=== PATIENT | male | born 1965 | race Caucasian/White ===

== ENCOUNTER 2022-11-16 12:14 | Inpatient (IN) ==
[2022-11-16] MEDS ORDERED: IOPAMIDOL 100 ML BOTTLE IV ONE (12:15)
[2022-11-16] MEDS ORDERED: KETOROLAC 30 MG/ML VIAL IV ONE (12:53)
[2022-11-16] MEDS ORDERED: LORazepam 2 MG/ML VIAL IV ONE (12:53)
--- NOTE | 2022-11-16 14:17 | Emergency Department Note ---
Abdominal Pain HPI General Chief Complaint: Abdominal Pain Stated Complaint: hernia Time Seen by Provider: 11/16/22 12:23 Source: patient Mode of arrival: ambulatory Limitations: no limitations History of Present Illness HPI Narrative: 57-year-old male with history of T2DM, hypertension presents to the ER with acut e onset left groin pain after walking on a treadmill at the gym this morning. He denies associated nausea vomiting or abdominal pain. He has a history of bilateral inguinal hernia with repair on the right and spontaneous reduction of his left inguinal hernia in the remote past. He also has a history of a ventral hernia repair. No other abdominal surgeries. Of note patient had a temperature of 100.6 Fahrenheit upon presentation to triage. The patient denies F/C/S or recent illnesses. Denies dysuria or hematuria. Related Data Home Medications Medication Instructions Recorded Confirmed Cholecalciferol (Vitamin D3) 01/20/18 10/07/22 Niacin 01/20/18 10/07/22 aspirin 81 mg tablet,delayed 81 mg PO QDAY 11/21/20 11/16/22 release omega-3 fatty acids 1,000 mg 1,000 mg PO QDAY 01/21/21 10/07/22 capsule (Fish Oil Concentrate) potassium chloride 8 mEq 8 meq PO QDAY 01/21/21 10/07/22 tablet,extended release (K-Tab) psyllium husk 0.4 gram capsule 0.4 g PO BID 07/03/21 10/07/22 (Daily Fiber) labetalol 300 mg tablet 300 mg PO BID 09/08/22 11/16/22 potassium chloride 8 mEq 8 meq PO TID 11/16/22 11/16/22 tablet,extended release (Klor-Con) Previous Rx's Medication Instructions Recorded metformin 1,000 mg tablet 1,000 mg PO BID #60 tabs 07/30/21 amlodipine 10 mg tablet 10 mg PO QDAY #90 tabs 03/18/22 chlorthalidone 25 mg tablet 25 mg PO QDAY #30 tabs 05/27/22 terbinafine HCl 250 mg tablet 250 mg PO QDAY 6 weeks #42 tabs 08/13/22 Allergies Allergy/AdvReac Type Severity Reaction Status Date / Time telmisartan [From Micardis] AdvReac Severe Other Verified 11/16/22 12:20 lisinopril AdvReac Unspecified Verified 10/07/22 09:27 losartan AdvReac edema, Verified 10/07/22 09:27 congestion, itching Review of Systems ROS ROS Narrative: Narrative: All systems ED: reviewed and negative except as stated. 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) Degenerative disc disease at L5-S1 level (Chronic) Traumatic tear of supraspinatus tendon of left shoulder (Chronic) Lumbar radiculopathy (Chronic) Neck pain (Chronic) Sleep apnea (Chronic) 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) Ringing in ears (Chronic) Wears hearing aid (Chronic) Joint pain (Chronic) Arthritis (Chronic) Muscle weakness (Chronic) Muscle stiffness (Chronic) Chronic pain (Chronic) Anemia (Acute) Diabetes mellitus with nephropathy (Chronic) Radiculopathy, lumbosacral region (Chronic) Carpal tunnel syndrome (Chronic) Lateral epicondylitis, left elbow (Acute) Cellulitis of left leg (Acute) Onychomycosis (Chronic) Medical History Anemia Arthritis Carpal tunnel syndrome Chronic pain Degenerative disc disease at L5-S1 level Diabetes mellitus with nephropathy Foraminal stenosis of lumbar region Gilbert disease Hemangioma L1 - MRI 2020 Hx of [facility]cc use of blood thinners Hypertension Hypokalemia Joint pain Lateral epicondylitis, left elbow Left rotator cuff tear Left shoulder pain Low back pain Lumbar radiculopathy Muscle pain Muscle spasm Muscle stiffness Muscle weakness Neck pain Obesity Onychomycosis Renal cyst, left 7-8 cm, appears unchanged MRI 2020 Ringing in ears Sleep apnea Traumatic tear of supraspinatus tendon of left shoulder Rim rent tear probable. MRI 12/3020 Wears hearing aid Surgical History History of arthroplasty of left shoulder RC repair Dr. Geronimo 02/27/21 History of left knee surgery (~09/23/18) Total knee History of tonsillectomy History of total right knee replacement (~09/2017) Hx of inguinal hernia surgery Right Family History Mother Ovarian cancer Diabetes Type II Hypertension Liver disease Heart attack Father Colon cancer Diabetes Hypertension Osteoarthritis Blood clot in vein Heart attack Grandmother Colon cancer Maternal Brother Hypertension Diabetes Sister Hypertension Social History Smoking Status: Smokeless tobacco Alcohol Intake Frequency: does not drink Substance Use: does not use Exam Narrative Narrative: General: AOx3, NAD, nontoxic appearing. Pleasant and conversant. HEENT: PERRL, EOMI, normocephalic. Moist mucous membranes. Normal facies and normal dentition. Respiratory: Lungs clear to auscultation bilaterally. No respiratory distress. Unlabored breathing. Heart: Regular rate and rhythm, no murmurs/clicks/rubs. Abdomen: Non-tender, Non distended, obese. Left groin with significant bulge to the inguinal canal lateral to the border of the inguinal ligament. This is painful with palpation. I do not feel a obvious defect, but I do attempt reduction which is unsuccessful. No pulsatile mass. Femoral pulses not appreciated due to body habitus. Extremities: Warm and well perfused. No edema. DP 2+ bilaterally. Chronic venous stasis. He does have left lower extremity warm to the touch and some mild circumferential erythema superimposed on the chronic venous stasis. There is no obvious areas of induration. There is minimal discharge from an anterior wan superficial wounds. Neuro: No focal deficits. Cranial nerves II-XII grossly normal. Skin: Warm dry, no rashes or lesions, no cyanosis. Psych: Normal mood and affect Heme/Lymph: No abnormal bruising General Limitations: no limitations Course Course Course Narrative: 57-year-old male presents for acute left inguinal pain and swelling concerning for incarcerated inguinal hernia. Reevaluation(s) Reevaluation #1: Obtain CT of the abdomen pelvis to rule out incarcerated hernia CBC, CHEM panel Establish IV and give IV Ativan for report of severe claustrophobia and need for CT scan Give 30 mg IV Toradol Reevaluation #2: Nursing notes the patient now has a temperature of 101 Fahrenheit. Will obtain CBC and give additional 1000 mg of Tylenol IV. Urinalysis was unremarkable Reevaluation #3: CBC with a white count of 16,800 and left shift. Lactic acid is 2.5--> give IV fluids Potassium is 2.9--> will replace with oral potassium if CT of the abdomen pelvis is negative Patient was reevaluated at the bedside with his and she notes that he has not felt ill and has not been complaining of significant lower extremity pain. She notes that he always has some discomfort in the lower extremities, but she does not feel this is new. She does believe that the left lower extremity is somewhat more red than baseline. She denies that the patient has been complaining of knee pain. Additional Reevaluation(s): CT of the abdomen pelvis with contrast shows a 3.1 cm infiltrated lymph node in the left inguinal region. There is a small left inguinal hernia containing mesenteric fat only. There is a 18 mm hemangioma noted in the left hepatic lobe. Patient has 4-5 nonobstructing stones in the calyces of the kidneys but no obstructing stones. Left lower extremity venous Doppler negative for DVT and no evidence of abscess, but the lymphadenopathy is again noted in the left inguinal region. Will obtain chest x-ray to query for other source of infection. Suspect left lower extremity cellulitis ---> chest x-ray with blunting of the left diaphragm may be indicative of a developing pneumonia. Patient is given 1 g IV ceftriaxone. MRSA nasal swab was negative. Vital Signs Vital signs: Vital Signs Temperature 100.6 F H 11/16/22 12:18 Pulse Rate 89 11/16/22 12:18 Respiratory Rate 26 H 11/16/22 12:18 Blood Pressure 178/73 11/16/22 12:18 Pulse Oximetry (%) 95 11/16/22 12:18 Oxygen Delivery Method Room Air 11/16/22 12:18 Temperature 99.1 F H 11/16/22 17:20 Pulse Rate 91 H 11/16/22 17:01 Respiratory Rate 31 H 11/16/22 17:01 Blood Pressure 159/70 11/16/22 17:01 Pulse Oximetry (%) 94 11/16/22 17:01 Oxygen Delivery Method Room Air 11/16/22 12:18 [facility] MDM Narrative Medical decision making narrative: Left lower extremity cellulitis Patient meets SIRS criteria. I have given 1 g of IV ceftriaxone here. I reache d out to the hospitalist for admission and further work-up for infectious source and he has accepted the patient for admission. Lab Data 11/16/22 13:37 Labs: Lab Results 11/16/22 11/16/22 11/16/22 Range/Units 13:37 13:37 13:38 WBC 16.8 H (4.5-11.0) K/mcL RBC 4.64 (4.63-6.08) M/mcL Hgb 14.1 (13.7-17.5) g/dL Hct 40.0 L (40.1-51.0) % POC Hct (41-55) MCV 86.2 (80.0-100.0) fL MCH 30.4 (26.0-34.0) pg MCHC 35.3 (31.0-36.0) g/dL RDW 12.8 (11.5-14.5) % Plt Count 203 (140-440) K/mcL MPV 11.0 (8.8-12.5) fL Immature Gran % (Auto) 0.5 (0.0-0.5) % Neut % (Auto) 91.3 H (38.0-78.0) % Lymph % (Auto) 3.4 L (15.5-49.0) % Newton % (Auto) 4.1 (1.0-12.0) % Eos % (Auto) 0.6 (0.0-7.0) % Baso % (Auto) 0.1 (0.0-2.0) % Lymph # (Auto) 0.57 L (1.50-4.80) K/mcL Newton # (Auto) 0.69 (0.10-0.90) K/mcL Eos # (Auto) 0.10 (0.00-0.70) K/mcL Baso # (Auto) 0.02 (0.00-0.30) K/mcL Immature Gran # 0.09 H (0.00-0.05) K/mcl Absolute Neutrophils 15.31 H (1.80-8.00) K/mcL POC VBG pH (7.32-7.42) POC VBG pCO2 at Temp (41-51) POC VBG pO2 (25-40) POC VBG HCO3 (24-28) POC VBG Total CO2 (25-29) POC Venous O2 Sat (40-70) POC VBG Base Excess (-2-2) VBG Lactic Acid (0.5-2) POC Sodium (133-145) POC Potassium (3.3-5.1) POC Chloride (96-108) POC Total CO2 (22-30) POC BUN (6-20) POC Creatinine 0.9 POC Glucose (70-105) POC WB Ioniz Calcium (1.16-1.32) C-Reactive Protein (0.03-0.80) mg/dL Procalcitonin (<0.10) ng/mL 11/16/22 11/16/22 11/16/22 Range/Units 14:29 15:54 16:04 WBC (4.5-11.0) K/mcL RBC (4.63-6.08) M/mcL Hgb (13.7-17.5) g/dL Hct (40.1-51.0) % POC Hct 41.0 (41-55) MCV (80.0-100.0) fL MCH (26.0-34.0) pg MCHC (31.0-36.0) g/dL RDW (11.5-14.5) % Plt Count (140-440) K/mcL MPV (8.8-12.5) fL Immature Gran % (Auto) (0.0-0.5) % Neut % (Auto) (38.0-78.0) % Lymph % (Auto) (15.5-49.0) % Newton % (Auto) (1.0-12.0) % Eos % (Auto) (0.0-7.0) % Baso % (Auto) (0.0-2.0) % Lymph # (Auto) (1.50-4.80) K/mcL Newton # (Auto) (0.10-0.90) K/mcL Eos # (Auto) (0.00-0.70) K/mcL Baso # (Auto) (0.00-0.30) K/mcL Immature Gran # (0.00-0.05) K/mcl Absolute Neutrophils (1.80-8.00) K/mcL POC VBG pH 7.48 H (7.32-7.42) POC VBG pCO2 at Temp 36.2 L (41-51) POC VBG pO2 49 H (25-40) POC VBG HCO3 27.0 (24-28) POC VBG Total CO2 28.0 (25-29) POC Venous O2 Sat 87.0 H (40-70) POC VBG Base Excess 3.0 H (-2-2) VBG Lactic Acid 2.5 H (0.5-2) POC Sodium 133 (133-145) POC Potassium 2.9 L* (3.3-5.1) POC Chloride 94 L (96-108) POC Total CO2 31.0 H (22-30) POC BUN 20 (6-20) POC Creatinine 0.9 POC Glucose 284 H (70-105) POC WB Ioniz Calcium 1.11 L (1.16-1.32) C-Reactive Protein (0.03-0.80) mg/dL Procalcitonin 0.43 H (<0.10) ng/mL 11/16/22 Range/Units 16:04 WBC (4.5-11.0) K/mcL RBC (4.63-6.08) M/mcL Hgb (13.7-17.5) g/dL Hct (40.1-51.0) % POC Hct (41-55) MCV (80.0-100.0) fL MCH (26.0-34.0) pg MCHC (31.0-36.0) g/dL RDW (11.5-14.5) % Plt Count (140-440) K/mcL MPV (8.8-12.5) fL Immature Gran % (Auto) (0.0-0.5) % Neut % (Auto) (38.0-78.0) % Lymph % (Auto) (15.5-49.0) % Newton % (Auto) (1.0-12.0) % Eos % (Auto) (0.0-7.0) % Baso % (Auto) (0.0-2.0) % Lymph # (Auto) (1.50-4.80) K/mcL Newton # (Auto) (0.10-0.90) K/mcL Eos # (Auto) (0.00-0.70) K/mcL Baso # (Auto) (0.00-0.30) K/mcL Immature Gran # (0.00-0.05) K/mcl Absolute Neutrophils (1.80-8.00) K/mcL POC VBG pH (7.32-7.42) POC VBG pCO2 at Temp (41-51) POC VBG pO2 (25-40) POC VBG HCO3 (24-28) POC VBG Total CO2 (25-29) POC Venous O2 Sat (40-70) POC VBG Base Excess (-2-2) VBG Lactic Acid (0.5-2) POC Sodium (133-145) POC Potassium (3.3-5.1) POC Chloride (96-108) POC Total CO2 (22-30) POC BUN (6-20) POC Creatinine POC Glucose (70-105) POC WB Ioniz Calcium (1.16-1.32) C-Reactive Protein 2.30 H (0.03-0.80) mg/dL Procalcitonin (<0.10) ng/mL ED POC Tests ED POC Tests: KIMO - Influenza A Negative KIMO - Influenza B Negative KIMO - SARS Antigen Negative Discharge Plan Patient/Caregiver Discharge Instructions Pt seen by STAFF HOME THERAPY RN/PA only: Yes Clinical Impression: Cellulitis of left leg Instructions: Cellulitis (DC) Patient Disposition: Xfer As Inpt ([facility]) Follow up with: Chris Stinson MD [Primary Care Provider] - Prescriptions: No Action omega-3 fatty acids [Fish Oil Concentrate] 1,000 mg capsule 1,000 mg PO QDAY potassium chloride [K-Tab] 8 mEq tablet extended release 8 meq PO QDAY psyllium husk [Daily Fiber] 0.4 gram capsule 0.4 g PO BID Rx Instructions: one level tablespoon metformin 1,000 mg tablet 1,000 mg PO BID Qty: 60 3RF amlodipine 10 mg tablet 10 mg PO QDAY Qty: 90 2RF chlorthalidone 25 mg tablet 25 mg PO QDAY Qty: 30 2RF terbinafine HCl 250 mg tablet 250 mg PO QDAY 42 Days Qty: 42 0RF labetalol 300 mg tablet 300 mg PO BID aspirin 81 mg tablet,delayed release (DR/EC) 81 mg PO QDAY Cholecalciferol (Vitamin D3) Niacin potassium chloride [Klor-Con 8] 8 mEq tablet extended release 8 meq PO TID
[2022-11-16] MEDS ORDERED: ACETAMINOPHEN 325 MG TABLET PO ONE (14:30)
[2022-11-16 14:31] LABS: POC Calcium, Ionized 1.11 (1.16-1.32); POC Creatinine 0.9 (0.6-1.2); POC Potassium 2.9 (3.3-5.1)
[2022-11-16] MEDS ORDERED: ACETAMINOPHEN 1,000 MG/100 ML BAG IV ONE (14:46)
--- NOTE | 2022-11-16 15:26 | Cat Scan Report ---
CLINICAL INFORMATION: Left groin mass. Evaluate for incarcerated left inguinal hernia COMPARISON: None. TECHNIQUE: Following enteric contrast, 80 cc of Isovue-370 were injected intravenously, and 60 seconds later, 0.625 mm helical slices were obtained from the mid heart through the subtrochanteric regions. Following reconstruction, 2.5 mm sagittal, coronal and axial reformatted images were processed and reviewed at bone, lung and soft tissue windows. Five minutes later, 0.625 mm helical slices were obtained from the mid heart through the kidneys and viewed at soft tissue windows.The exam was performed using radiation dose optimization techniques including, but not limited to, automated exposure control, adjustment of the mA and/or kV according to patient size and use of iterative reconstruction technique. FINDINGS: The lung bases subsegmental atelectasis.. No effusions. The visualized heart is mildly enlarged.. Abdominal images show a 19 mm high attenuation lesion in the lateral segment left hepatic lobe. This was not seen on the 2014 exam. Mild fatty change seen within the liver. The gallbladder and bile ducts, adrenal glands, spleen, pancreas and aorta, including aortic branches, are normal in size, configuration and attenuation without focal lesion. A 7.7 cm simple cyst in the left kidney is unchanged. 4-5 small nonobstructing stones ranging up to 5 mm present within the calyces of both kidneys. There is no free air, free fluid or adenopathy. Pelvic images show normal urinary bladder. Mild prostate enlargement 5 cm appreciated. Few sigmoid diverticuli but no evidence of diverticulitis. The remainder of the large bowel, medial pericecal appendix, small bowel and stomach are grossly normal. Small periumbilical hernia contains only mesenteric fat. Bone windows show ankylosis across the SI joints-a new finding from prior exam. Also syndesmophyte bridging the thoracic and lumbar vertebral bodies. Degenerative change seen in the lumbar spine. There is a cluster of 4-5 lymph nodes in left inguinal region ranging up to 3.1 cm. They. A pathologically infiltrated. 3-4 small lymph nodes present in the right inguinal region ranging up to 2.4 cm. Small left inguinal hernia contains only mesenteric fat IMPRESSION: 1. 4-5 pathologically infiltrated lymph node in the left inguinal region ranging up to 3.1 cm. Consider ultrasound-guided biopsy. Small left inguinal hernia containing only mesenteric fat-these are very commonly seen and typically asymptomatic. 2. 18 mm high attenuation lesion in the lateral segment left hepatic lobe likely a benign hemangioma. Suggest liver ultrasound. 3. 7.7 cm simple cyst superior left kidneys which demonstrates long-term stability 4. Mild prostate enlargement 5. Mild periumbilical hernia containing only mesenteric fat 6. 4-5 nonobstructing stones in the calyces of the kidneys ranging up to 5 mm. No obstructing stone 7. SI joint ankylosis and syndesmophytes bridging the thoracic and lumbar vertebral bodies suggestive of ankylosing spondylitis. Please correlate with HLA-B27 Interpreted and Authenticated by: Mil Walter 11/16/22
[2022-11-16 15:32] LABS: Basophils # (Auto) 0.02 K/mcL (0.00-0.30); Basophils % (Auto) 0.1 % (0.0-2.0); Eosinophils % (Auto) 0.6 % (0.0-7.0); Hemoglobin 14.1 g/dL (13.7-17.5); Lymphocytes # (Auto) 0.57 K/mcL (1.50-4.80); Lymphocytes % (Auto) 3.4 % (15.5-49.0); Mean Cell Volume 86.2 fL (80.0-100.0); Mean Corpuscular HGB Conc 35.3 g/dL (31.0-36.0); Monocytes # (Auto) 0.69 K/mcL (0.10-0.90); Monocytes % (Auto) 4.1 % (1.0-12.0); Neutrophils % (Auto) 91.3 % (38.0-78.0); Platelet Count 203 K/mcL (140-440); RBC 4.64 M/mcL (4.63-6.08); Red Cell Distribution Width 12.8 % (11.5-14.5); WBC 16.8 K/mcL (4.5-11.0)
[2022-11-16] MEDS ORDERED: POTASSIUM CHLORIDE 20 MEQ TABLET PO ONE (15:39)
[2022-11-16] MEDS ORDERED: cefTRIAXone 1 GM VIAL IV ONE (15:54)
[2022-11-16] MEDS ORDERED: 0.9 % SODIUM CHLORIDE 1,000 ML IV ONE (16:45)
--- NOTE | 2022-11-16 17:12 | Ultrasound Report ---
CLINICAL INFORMATION: COMPARISON: None. FINDINGS: The entire deep venous system including the common femoral, superficial femoral, popliteal and paired trifurcation calf veins are easily compressible and show normal venous blood flow on color and spectral Doppler. No evidence of thrombus IMPRESSION: No evidence of deep vein thrombosis. There are 4-5 lymph nodes in the left inguinal region ranging up to 5 cm. Interpreted and Authenticated by: Mil Walter 11/16/22
--- NOTE | 2022-11-16 17:14 | XRay Report ---
CLINICAL INFORMATION: Elevated white blood cell count COMPARISON: 05/22/2008 TECHNIQUE: Portable FINDINGS: Mild cardiomegaly is increased from previous exam. Mediastinum is unremarkable. There is mild patchy infiltrates in both lung bases. Mild redistribution upper lobe pulmonary vasculature is likely related to bibasilar infiltrates. No effusions. IMPRESSION: Mild patchy bibasilar infiltrates. Interpreted and Authenticated by: Mil Walter 11/16/22
--- NOTE | 2022-11-16 17:23 | Cat Scan Report ---
CLINICAL INFORMATION: Sepsis COMPARISON: None. TECHNIQUE: 0.625 mm helical slices were obtained from the lung apices through the lung bases. Following reconstruction, 2.5 mm sagittal, coronal and axial reformatted images were processed and reviewed at multiple windows and levels. 7 mm MIP reconstructions were obtained through the lungs to optimize nodule detection.The exam was performed using radiation dose optimization techniques including, but not limited to, automated exposure control, adjustment of the mA and/or kV according to patient size and use of iterative reconstruction technique. FINDINGS: Pulmonary parenchymal windows show mild patchy infiltrates in the lower lobes. Mild interstitial edema is seen in the interlobular septa. Pleural spaces are unremarkable-no effusions. Mediastinal windows show the heart is moderately enlarged with heavy calcific plaque in the coronary arteries.. The noncontrasted thoracic aorta is normal. The noncontrasted pulmonary arteries are moderately enlarged There is no adenopathy in the mediastinal, hilar or axillary regions. Esophagus is grossly normal. The thyroid is unremarkable. Bone windows show no osseous abnormality. IMPRESSION: 1. Mild patchy infiltrates both lower lobes 2. Mild CHF. Consider diuretic trial Interpreted and Authenticated by: Mil Walter 11/16/22
[2022-11-16] MEDS ORDERED: ONDANSETRON 4 MG/2 ML VIAL IV PRN (17:28)
[2022-11-16] MEDS ORDERED: DEXTROSE 50% 50 ML VIAL IV PRN (17:38)
[2022-11-16] MEDS ORDERED: DEXTROSE 31 GM ORAL.SUSP PO PRN (17:38)
--- NOTE | 2022-11-16 17:38 | Internal Med History&Physical ---
HPI History of Present Illness Patient information: Note initiated : 11/16/22 at 5:31 pm Service Date, if different from initiated Date: [] Patient: Hans Trinidad a 57 y/o M admitted on for hernia. Chief Complaint: [Groin pain] Chief complaint: Groin pain History of present illness: Mr. Trinidad is a 57 year old obese male with a complex past medical history significant for lumbar radiculopathy, JOSE intolerant of CPAP, hypertension, hyperlipidemia, and DM2 who presents to the hospital with vague nonspecific complaints. The patient was lethargic as he recently received Ativan and history was obtained secondhand through the who was present at the bedside. She states that he was in his usual state of health however today when they were at the gym, he was walking on the treadmill and after stretching vigorousl y, noted groin pain. They initially assumed that it may be hernia related as he does have a history. He then developed rigors which point it was decided to come into the ER for further evaluation. On arrival he was hemodynamically stable however was found to have high fevers of 101.6. He had an elevated white blood cell count of 16,000 with a lactic acid of 2.5. CT abdomen pelvis was unrevealing but did show significant lymphadenopathy. Left lower extremity duplex ultrasound was negative for DVT. Per the , she went away to visit her family and was gone for 8 days. The patient normally wears LUKAS hose stockings however was unable to put them on himself. He was having issues with pedal edema. She states that when she came back, she noted significant skin breakdown around the left calf. It appears purulent and hot to touch. This is likely the source of infection. The hospitalist service was asked admit the patient for further management and evaluation of his sepsis. 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 (Chronic) Degenerative disc disease at L5-S1 level (Chronic) Traumatic tear of supraspinatus tendon of left shoulder (Chronic) Lumbar radiculopathy (Chronic) Neck pain (Chronic) Sleep apnea (Chronic) Hx of lobsterman use of blood thinners (Chronic) Ringing in ears (Chronic) Wears hearing aid (Chronic) Joint pain (Chronic) Arthritis (Chronic) Muscle weakness (Chronic) Muscle stiffness (Chronic) Chronic pain (Chronic) Anemia (Acute) Diabetes mellitus with nephropathy (Chronic) Radiculopathy, lumbosacral region (Chronic) Carpal tunnel syndrome (Chronic) Lateral epicondylitis, left elbow (Acute) Cellulitis of left leg (Acute) Onychomycosis (Chronic) Medical History Anemia Arthritis Carpal tunnel syndrome Chronic pain Degenerative disc disease at L5-S1 level Diabetes mellitus with nephropathy Foraminal stenosis of lumbar region Gilbert disease Hemangioma L1 - MRI 2020 Hx of chcf use of blood thinners Hypertension Hypokalemia Joint pain Lateral epicondylitis, left elbow Left rotator cuff tear Left shoulder pain Low back pain Lumbar radiculopathy Muscle pain Muscle spasm Muscle stiffness Muscle weakness Neck pain Obesity Onychomycosis Renal cyst, left 7-8 cm, appears unchanged MRI 2020 Ringing in ears Sleep apnea Traumatic tear of supraspinatus tendon of left shoulder Rim rent tear probable. MRI 12/3020 Wears hearing aid Surgical History History of arthroplasty of left shoulder RC repair Dr. Geronimo 02/27/21 History of left knee surgery (~09/23/18) Total knee History of tonsillectomy History of total right knee replacement (~09/2017) Hx of inguinal hernia surgery Right Family History Mother Ovarian cancer Diabetes Type II Hypertension Liver disease Heart attack Father Colon cancer Diabetes Hypertension Osteoarthritis Blood clot in vein Heart attack Grandmother Colon cancer Maternal Brother Hypertension Diabetes Sister Hypertension Social History household members: spouse marital status: occupational status: disabled occupation: [employer] smoking status: Smokeless tobacco alcohol intake frequency: does not drink substance use type: does not use MEDS/ALLERGIES Home Medications and Allergies Home Medications Medication Instructions Recorded Confirmed Type Cholecalciferol (Vitamin D3) 01/20/18 10/07/22 History Niacin 01/20/18 10/07/22 History aspirin 81 mg tablet,delayed 81 mg PO QDAY 11/21/20 11/16/22 History release omega-3 fatty acids 1,000 mg 1,000 mg PO QDAY 01/21/21 10/07/22 History capsule (Fish Oil Concentrate) potassium chloride 8 mEq 8 meq PO QDAY 01/21/21 10/07/22 History tablet,extended release (K-Tab) psyllium husk 0.4 gram capsule 0.4 g PO BID 07/03/21 10/07/22 History (Daily Fiber) metformin 1,000 mg tablet 1,000 mg PO BID #60 tabs 07/30/21 11/16/22 Rx amlodipine 10 mg tablet 10 mg PO QDAY #90 tabs 03/18/22 11/16/22 Rx chlorthalidone 25 mg tablet 25 mg PO QDAY #30 tabs 05/27/22 11/16/22 Rx terbinafine HCl 250 mg tablet 250 mg PO QDAY 6 weeks #42 tabs 08/13/22 10/07/22 Rx labetalol 300 mg tablet 300 mg PO BID 09/08/22 11/16/22 History potassium chloride 8 mEq 8 meq PO TID 11/16/22 11/16/22 History tablet,extended release (Klor-Con) Allergies Allergy/AdvReac Type Severity Reaction Status Date / Time lisinopril Allergy Unknown Unknown Verified 11/16/22 17:37 telmisartan [From Micardis] Allergy Unknown Unknown Verified 11/16/22 17:37 losartan AdvReac Intermediate edema, Verified 11/16/22 17:37 congestion, itching EXAM Constitutional Vitals: Temp Pulse Resp BP Pulse Ox O2 Del Method 99.1 F H 91 H 31 H 159/70 94 Room Air 11/16/22 17:20 11/16/22 17:01 11/16/22 17:01 11/16/22 17:01 11/16/22 17:01 11/16/22 12:18 General appearance: morbidly obese Head Head exam: Present atraumatic, normal inspection and normocephalic Eye Eye exam: Present EOMI, normal appearance and PERRL; Absent conjunctival injection ENT ENT exam: Present normal exam; Absent mucous membranes dry Neck Neck exam: Present full ROM; Absent lymphadenopathy Respiratory Respiratory exam: Present normal respiratory exam and CTAB; Absent decreased breath sounds, respiratory distress or wheezes Cardiovascular Cardiovascular exam: Present normal rate and rhythm and RRR; Absent JVD GI/Abdominal GI/Abdominal exam: Present normal bowel sounds and soft; Absent diminished bowel sounds, distended, guarding, mass, rebound or tenderness Neurological Exam Neurological exam: Absent alert Psychiatric Psychiatric exam: Present normal affect and normal mood Skin Skin exam: Present intact and warm; Absent erythema, pallor, petechiae or rash DATA Data Completed and Pending Labs: Labs from last 24 hours 11/16/22 11/16/22 11/16/22 16:04 16:04 15:54 WBC RBC Hgb Hct POC Hct MCV MCH MCHC RDW Plt Count MPV Immature Gran % (Auto) Neut % (Auto) Lymph % (Auto) [place] % (Auto) Eos % (Auto) Baso % (Auto) Lymph # (Auto) [place] # (Auto) Eos # (Auto) Baso # (Auto) Immature Gran # Absolute Neutrophils POC VBG pH 7.48 H POC VBG pCO2 at Temp 36.2 L POC VBG pO2 49 H POC VBG HCO3 27.0 POC VBG Total CO2 28.0 POC Venous O2 Sat 87.0 H POC VBG Base Excess 3.0 H VBG Lactic Acid 2.5 H POC Sodium POC Potassium POC Chloride POC Total CO2 POC BUN POC Creatinine POC Glucose POC WB Ioniz Calcium C-Reactive Protein 2.30 H Procalcitonin 0.43 H 11/16/22 11/16/22 11/16/22 14:29 13:38 13:37 WBC 16.8 H RBC 4.64 Hgb 14.1 Hct 40.0 L POC Hct 41.0 MCV 86.2 MCH 30.4 MCHC 35.3 RDW 12.8 Plt Count 203 MPV 11.0 Immature Gran % (Auto) 0.5 Neut % (Auto) 91.3 H Lymph % (Auto) 3.4 L [place] % (Auto) 4.1 Eos % (Auto) 0.6 Baso % (Auto) 0.1 Lymph # (Auto) 0.57 L [place] # (Auto) 0.69 Eos # (Auto) 0.10 Baso # (Auto) 0.02 Immature Gran # 0.09 H Absolute Neutrophils 15.31 H POC VBG pH POC VBG pCO2 at Temp POC VBG pO2 POC VBG HCO3 POC VBG Total CO2 POC Venous O2 Sat POC VBG Base Excess VBG Lactic Acid POC Sodium 133 POC Potassium 2.9 L* POC Chloride 94 L POC Total CO2 31.0 H POC BUN 20 POC Creatinine 0.9 0.9 POC Glucose 284 H POC WB Ioniz Calcium 1.11 L C-Reactive Protein Procalcitonin 11/16/22 13:37 WBC RBC Hgb Hct POC Hct MCV MCH MCHC RDW Plt Count MPV Immature Gran % (Auto) Neut % (Auto) Lymph % (Auto) [place] % (Auto) Eos % (Auto) Baso % (Auto) Lymph # (Auto) [place] # (Auto) Eos # (Auto) Baso # (Auto) Immature Gran # Absolute Neutrophils POC VBG pH POC VBG pCO2 at Temp POC VBG pO2 POC VBG HCO3 POC VBG Total CO2 POC Venous O2 Sat POC VBG Base Excess VBG Lactic Acid POC Sodium POC Potassium POC Chloride POC Total CO2 POC BUN POC Creatinine POC Glucose POC WB Ioniz Calcium C-Reactive Protein Procalcitonin A/P Assessment and plan (1) Hypokalemia: Status: Chronic (2) Sepsis: Status: Acute (3) Lactic acidosis: Status: Acute (4) Obesity: Status: Chronic Qualifiers: Obesity type: due to excess calories Obesity classification: adult class 2 (BMI 35 - 39.9) Serious obesity comorbidity presence: without serious comorbidity Body mass index: BMI 37.0-37.9 Qualified Code(s): E66.09 - Other obesity due to excess calories; Z68.37 - Body mass index [BMI] 37.0-37.9, adult (5) Cellulitis: Status: Acute Narrative A/P Narrative: The etiology of the patient's sepsis was initially unclear however upon examination, he does have significant breakdown of the left calf area. At baseline, he has degenerative skin changes likely in the setting of severe underlying PVD. There may be also a possibility of venous stasis dermatitis. Wound culture will be obtained. Blood cultures are pending. Wound care referral has been placed. We will start ceftriaxone and vancomycin. We will continue IV fluids and follow-up on his lactic acid. The patient was found to have hypokalemia as this was likely in the setting of chlorthalidone. The patient's home metformin will be held and we will continue insulin sliding scale. Time Spent With Patient Time: Total time spent is greater than 50% in coordination of care (as documented) at patient's floor/unit and/or counseling patient: Initial: Total time with patient: 75 - 90 minutes
[2022-11-16] MEDS: LACTATED RINGERS 1,000 ML IV SCH (19:03)
[2022-11-16] MEDS: VANCOMYCIN 1,500 MG in 0.9 % SODIUM CHLORIDE 500 ML IV SCH (19:57)
[2022-11-16] MEDS: IBUPROFEN 600 MG TABLET PO PRN (20:05)
[2022-11-16] MEDS: DOCUSATE SODIUM 100 MG CAPSULE PO SCH (21:52)
[2022-11-16] MEDS: LABETALOL 100 MG TABLET PO SCH (21:52)
[2022-11-16] MEDS: amLODIPine 10 MG TABLET PO SCH (21:53)
[2022-11-16] MEDS: SENNOSIDES 1 TABLET PO SCH (21:53)
[2022-11-16] MEDS: INSULIN LISPRO 1 UNIT/0.01 ML UNIT SQ SCH (21:54)
[2022-11-16] MEDS: 0.9 % SODIUM CHLORIDE 10 ML SYRINGE IV SCH (22:04)
[2022-11-17] MEDS: LACTATED RINGERS 1,000 ML IV SCH (02:18)
[2022-11-17] MEDS: ACETAMINOPHEN 325 MG TABLET PO PRN ×2 (02:23→10:02)
[2022-11-17] MEDS: IBUPROFEN 600 MG TABLET PO PRN ×2 (03:20→15:29)
[2022-11-17] MEDS: 0.9 % SODIUM CHLORIDE 10 ML SYRINGE IV SCH ×3 (04:59→21:02)
[2022-11-17 06:08] LABS: Basophils # (Auto) 0.03 K/mcL (0.00-0.30); Basophils % (Auto) 0.2 % (0.0-2.0); Eosinophils # (Auto) 0.02 K/mcL (0.00-0.70); Eosinophils % (Auto) 0.1 % (0.0-7.0); Hematocrit 38.9 % (40.1-51.0); Hemoglobin 13.7 g/dL (13.7-17.5); Lymphocytes # (Auto) 0.23 K/mcL (1.50-4.80); Lymphocytes % (Auto) 1.5 % (15.5-49.0); Mean Cell Volume 86.6 fL (80.0-100.0); Mean Corpuscular HGB Conc 35.2 g/dL (31.0-36.0); Mean Platelet Volume 10.5 fL (8.8-12.5); Monocytes # (Auto) 0.41 K/mcL (0.10-0.90); Monocytes % (Auto) 2.7 % (1.0-12.0); Platelet Count 165 K/mcL (140-440); RBC 4.49 M/mcL (4.63-6.08); Red Cell Distribution Width 13.2 % (11.5-14.5); WBC 15.5 K/mcL (4.5-11.0)
[2022-11-17 06:46] LABS: Blood Urea Nitrogen 18 mg/dL (6-20); Carbon Dioxide 28 mmol/L (22-30); Chloride 97 mmol/L (96-108); Glomerular Filtration Rate 74; Glucose 197 mg/dL (70-105)
[2022-11-17] MEDS: INSULIN LISPRO 1 UNIT/0.01 ML UNIT SQ SCH ×4 (07:52→21:24)
[2022-11-17] MEDS ORDERED: POTASSIUM CHLORIDE 40 MEQ in DEXTROSE 5% IN WATER 500 ML IV ONE (07:58)
[2022-11-17] MEDS: ENOXAPARIN 40 MG/0.4 ML SYRINGE SQ SCH (08:57)
[2022-11-17] MEDS: VANCOMYCIN 1,500 MG in 0.9 % SODIUM CHLORIDE 500 ML IV SCH ×2 (08:57→20:55)
[2022-11-17] MEDS: LABETALOL 100 MG TABLET PO SCH ×2 (08:57→21:23)
[2022-11-17] MEDS: ASPIRIN 81 MG TAB.CHEW PO SCH (08:57)
[2022-11-17] MEDS: DOCUSATE SODIUM 100 MG CAPSULE PO SCH ×2 (08:58→21:23)
[2022-11-17] MEDS ORDERED: VANCOMYCIN PER PHARMACY IV SCH (09:00)
--- NOTE | 2022-11-17 11:00 | Internal Med Progress Note ---
SUBJECTIVE Subjective Patient information: Note initiated : 11/17/22 at 10:58 am Service Date, if different from initiated Date: [] Patient: Hans Trinidad 57 y/o M admitted on 11/16/22 for hernia. Chief Complaint: [Groin pain, rigors] Principal diagnosis: Sepsis, cellulitis, BLAISE Interval history: The patient was more alert and conversive this morning. He remains somnolent. is present at the bedside to discuss plan of care. Overall, the patient is clinically improving. Constitutional Vitals: Vital Signs Temp Pulse Resp BP Pulse Ox O2 Del Method 100.7 F H 68 30 H 165/59 93 Room Air 11/17/22 10:08 11/17/22 07:15 11/17/22 07:15 11/17/22 07:15 11/17/22 07:15 11/17/22 07:15 Period Temp Pulse Resp BP Sys/Moeller Pulse Ox O2 Del Method O2 Flow Rate Last 24 Hr 98.2 F-103.1 F 68-104 23-40 139-210/59-104 90-98 Room Air-Room Air Intake and Output 11/16/22 11/17/22 11/17/22 19:59 03:59 11:59 Intake Total 1100 1525 360 Output Total 200 600 Balance 900 925 360 Weight 130.725 kg Intake & Output: Intake & Output 11/16/22 11/17/22 11/17/22 19:59 03:59 11:59 Intake Total 1100 1525 360 Output Total 200 600 Balance 900 925 360 Weight 130.725 kg Intake: IV 1100 1225 Sodium Chloride 0.9% 1,000 ml @ 1000 Wide Open IV BOLUS ONE Rx#: [id number] Lactated Ringers 1,000 ml @ 100 725 mls/hr IV .Q10H ANIRUDH Rx#: [id number] Vancomycin 1,500 mg In Sodium 500 Chloride 0.9% 500 ml @ 333.3 mls/hr IV Q12H ANIRUDH Rx#: [id number] Oral 300 360 Output: Void Amount 200 600 Other: Urine Appearance Clear Clear Urine Color Yellow Light Rayna Head Head exam: Present atraumatic and normal inspection Eye Eye exam: Present normal appearance ENT ENT exam: Present mucous membranes moist, normal exam and normal external ear exam Neck Neck exam: Present normal inspection Respiratory Respiratory exam: Present normal respiratory exam Cardiovascular Cardiovascular exam: Present normal rate and rhythm GI/Abdominal GI/Abdominal exam: Present normal bowel sounds Back Exam Back exam: Present normal inspection Neurological Exam Neurological exam: Present alert and oriented X3 Skin Skin exam: Present intact and warm OBJ DATA Labs 11/17/22 05:21 11/17/22 05:21 Labs: Abnormal Lab Results 11/17/22 11/17/22 11/16/22 05:21 05:21 16:04 WBC 15.5 H RBC 4.49 L Hct 38.9 L Neut % (Auto) 95.0 H Lymph % (Auto) 1.5 L Lymph # (Auto) 0.23 L Immature Gran # 0.08 H Absolute Neutrophils 14.69 H POC VBG pH POC VBG pCO2 at Temp POC VBG pO2 POC Venous O2 Sat POC VBG Base Excess VBG Lactic Acid POC Potassium Potassium 2.8 L* POC Chloride POC Total CO2 Glucose 197 H POC Glucose POC WB Ioniz Calcium C-Reactive Protein 2.30 H Procalcitonin 11/16/22 11/16/22 11/16/22 16:04 15:54 14:29 WBC RBC Hct Neut % (Auto) Lymph % (Auto) Lymph # (Auto) Immature Gran # Absolute Neutrophils POC VBG pH 7.48 H POC VBG pCO2 at Temp 36.2 L POC VBG pO2 49 H POC Venous O2 Sat 87.0 H POC VBG Base Excess 3.0 H VBG Lactic Acid 2.5 H POC Potassium 2.9 L* Potassium POC Chloride 94 L POC Total CO2 31.0 H Glucose POC Glucose 284 H POC WB Ioniz Calcium 1.11 L C-Reactive Protein Procalcitonin 0.43 H 11/16/22 13:37 WBC 16.8 H RBC Hct 40.0 L Neut % (Auto) 91.3 H Lymph % (Auto) 3.4 L Lymph # (Auto) 0.57 L Immature Gran # 0.09 H Absolute Neutrophils 15.31 H POC VBG pH POC VBG pCO2 at Temp POC VBG pO2 POC Venous O2 Sat POC VBG Base Excess VBG Lactic Acid POC Potassium Potassium POC Chloride POC Total CO2 Glucose POC Glucose POC WB Ioniz Calcium C-Reactive Protein Procalcitonin Meds: Medications Acetaminophen (Acetaminophen 325 Mg Tablet) 650 mg PO Q6HP PRN; Protocol PRN Reason: Per Pain Protocol/Fever > 101 Last Admin: 11/17/22 10:02 Dose: 650 mg Amlodipine Besylate (Amlodipine 10 Mg Tablet) 10 mg PO HS [facility] Last Admin: 11/16/22 21:53 Dose: 10 mg Aspirin (Aspirin 81 Mg Tab.Chew) 81 mg PO DAILY [facility] Last Admin: 11/17/22 08:57 Dose: 81 mg Dextrose (Dextrose 50% 50 Ml Vial) 0 ml IV UD PRN PRN Reason: Per Sliding Scale Diagnostic Test (Pha) (Accu-Chek 1 Each Strip) 1 each FS ACHS [facility] Last Admin: 11/17/22 07:49 Dose: 1 each Docusate Sodium (Docusate Sodium 100 Mg Capsule) 100 mg PO BID [facility] Last Admin: 11/17/22 08:58 Dose: 100 mg Enoxaparin Sodium (Enoxaparin 40 Mg/0.4 Ml Syringe) 40 mg SQ DAILY [facility] Last Admin: 11/17/22 08:57 Dose: 40 mg Glucose (Dextrose 31 Gm Oral.Susp) 15 gm PO PRN PRN PRN Reason: Hypoglycemia Lactated Ringer's (Lactated Ringers) 1,000 mls @ 100 mls/hr IV .Q10H [facility] Last Admin: 11/17/22 02:18 Dose: 100 mls/hr Vancomycin HCl 1,500 mg/ (Sodium Chloride) 500 mls @ 333.3 mls/hr IV Q12H [facility] Last Admin: 11/17/22 08:57 Dose: 333.3 mls/hr Potassium Chloride 40 meq/ (Dextrose) 520 mls @ 130 mls/hr IV ONCE ONE Stop: 11/17/22 11:57 Last Admin: 11/17/22 08:57 Dose: 130 mls/hr Ibuprofen (Ibuprofen 600 Mg Tablet) 600 mg PO QIDP PRN; Protocol PRN Reason: Per Pain Protocol/Fever > 101 Last Admin: 11/17/22 03:20 Dose: 600 mg Insulin Human Lispro (Insulin Lispro 1 Unit/0.01 Ml Unit) 0 unit SQ ACHS [facility]; Protocol Last Admin: 11/17/22 07:52 Dose: 4 units Labetalol HCl (Labetalol 100 Mg Tablet) 300 mg PO BID [facility] Last Admin: 11/17/22 08:57 Dose: 300 mg Ondansetron HCl (Ondansetron 4 Mg/2 Ml Vial) 4 mg IV Q6HP PRN PRN Reason: Nausea And Vomiting Senna (Sennosides 1 Tablet) 2 tab PO HS [facility] Last Admin: 11/16/22 21:53 Dose: 2 tab Sodium Chloride (0.9 % Sodium Chloride 10 Ml Syringe) 10 ml IV Q8 [facility] Last Admin: 11/17/22 04:59 Dose: Not Given Vancomycin HCl (Vancomycin Per Pharmacy) 1 order IV UD [facility]; Protocol A/P Assessment and plan (1) Hypokalemia: Status: Chronic (2) Sepsis: Status: Acute (3) Lactic acidosis: Status: Acute (4) Obesity: Status: Chronic Qualifiers: Obesity type: due to excess calories Obesity classification: adult class 2 (BMI 35 - 39.9) Serious obesity comorbidity presence: without serious comorbidity Body mass index: BMI 37.0-37.9 Qualified Code(s): E66.09 - Other obesity due to excess calories; Z68.37 - Body mass index [BMI] 37.0-37.9, adult (5) Cellulitis: Status: Acute Narrative A/P Narrative: The etiology of the patient's sepsis was initially unclear however upon examination, he does have significant breakdown of the left calf area. At [facility], he has degenerative skin changes likely in the setting of severe underlying PVD. There may be also a possibility of venous stasis dermatitis. Wound culture will be obtained. Blood cultures are pending. Wound care referral has been placed. We will start ceftriaxone and vancomycin. We will continue IV fluids and follow-up on his lactic acid. The patient was found to have hypokalemia as this was likely in the setting of chlorthalidone. The patient's home metformin will be held and we will continue insulin sliding scale. 11/17: The patient has defervesced and his white blood cell count has improved to 15.5. His lactic acid has normalized to 1.5. The patient's MRSA screen was n egative and we will transition vancomycin to Zosyn. He does have severe venous stasis dermatitis which has developed into purulent cellulitis. Continue local wound care. Time Spent With Patient Time: Total time spent is greater than 50% in coordination of care (as documented) at patient's floor/unit and/or counseling patient: Subsequent: Total time with patient: 25 - 34 minutes QUALITY Stroke Symptom Onset Unknown: No VTE Deep Vein Thrombosis/Pulmonary Embolism Present on Admission: No
[2022-11-17] MEDS: PIPERACILLIN SODIUM/TAZOBACTAM 3.375 GM in DEXTROSE 5% IN WATER 50 ML IV SCH ×2 (12:00→18:34)
[2022-11-17] MEDS ORDERED: FUROSEMIDE 100 MG/10 ML VIAL IV ONE (18:10)
[2022-11-17] MEDS ORDERED: FUROSEMIDE 40 MG/4 ML VIAL IV ONE (18:13)
[2022-11-17] MEDS ORDERED: KETOROLAC 30 MG/ML VIAL ONE (18:40)
[2022-11-17] MEDS: KETOROLAC 30 MG/ML VIAL IV ONE ×2 (18:41→18:43)
[2022-11-17] MEDS: amLODIPine 10 MG TABLET PO SCH (21:24)
[2022-11-17] MEDS: SENNOSIDES 1 TABLET PO SCH (21:24)
[2022-11-18] MEDS: PIPERACILLIN SODIUM/TAZOBACTAM 3.375 GM in DEXTROSE 5% IN WATER 50 ML IV SCH ×3 (00:01→14:46)
[2022-11-18] MEDS: 0.9 % SODIUM CHLORIDE 10 ML SYRINGE IV SCH ×4 (05:16→21:23)
[2022-11-18] MEDS: INSULIN LISPRO 1 UNIT/0.01 ML UNIT SQ SCH ×4 (07:31→21:40)
[2022-11-18 07:37] LABS: Basophils # (Auto) 0.02 K/mcL (0.00-0.30); Basophils % (Auto) 0.2 % (0.0-2.0); Eosinophils # (Auto) 0.02 K/mcL (0.00-0.70); Eosinophils % (Auto) 0.2 % (0.0-7.0); Hematocrit 38.4 % (40.1-51.0); Hemoglobin 13.3 g/dL (13.7-17.5); Lymphocytes # (Auto) 0.53 K/mcL (1.50-4.80); Lymphocytes % (Auto) 5.9 % (15.5-49.0); Mean Cell Volume 86.3 fL (80.0-100.0); Mean Corpuscular HGB Conc 34.6 g/dL (31.0-36.0); Mean Platelet Volume 10.9 fL (8.8-12.5); Monocytes # (Auto) 0.41 K/mcL (0.10-0.90); Monocytes % (Auto) 4.5 % (1.0-12.0); Neutrophils % (Auto) 88.6 % (38.0-78.0); Platelet Count 152 K/mcL (140-440); RBC 4.45 M/mcL (4.63-6.08); Red Cell Distribution Width 13.2 % (11.5-14.5)
[2022-11-18 08:13] LABS: Blood Urea Nitrogen 17 mg/dL (6-20); Calcium 8.7 mg/dL (8.6-10.4); Carbon Dioxide 27 mmol/L (22-30); Chloride 92 mmol/L (96-108); Glomerular Filtration Rate 74; Glucose 196 mg/dL (70-105)
[2022-11-18] MEDS: FUROSEMIDE 40 MG/4 ML VIAL IV SCH ×2 (09:49→21:22)
[2022-11-18] MEDS: hydrALAZINE 10 MG TABLET PO SCH ×3 (09:49→21:23)
[2022-11-18] MEDS: INSULIN GLARGINE, HUMAN 1 UNIT/0.01 ML SQ SCH (09:49)
[2022-11-18] MEDS: DOCUSATE SODIUM 100 MG CAPSULE PO SCH ×2 (09:49→21:23)
[2022-11-18] MEDS: POTASSIUM CHLORIDE 20 MEQ TABLET PO SCH ×2 (09:50→17:19)
[2022-11-18] MEDS: ASPIRIN 81 MG TAB.CHEW PO SCH (09:50)
[2022-11-18] MEDS: LABETALOL 100 MG TABLET PO SCH ×2 (09:50→21:23)
[2022-11-18] MEDS: ENOXAPARIN 40 MG/0.4 ML SYRINGE SQ SCH (09:54)
[2022-11-18] MEDS: VANCOMYCIN 2,000 MG in 0.9 % SODIUM CHLORIDE 500 ML IV SCH ×2 (10:52→21:51)
[2022-11-18] MEDS: VANCOMYCIN PER PHARMACY IV SCH (10:52)
[2022-11-18] MEDS: VANCOMYCIN 1,500 MG in 0.9 % SODIUM CHLORIDE 500 ML IV SCH (11:25)
--- NOTE | 2022-11-18 12:37 | Internal Med Progress Note ---
SUBJECTIVE Subjective Patient information: Note initiated : 11/18/22 at 12:34 pm Service Date, if different from initiated Date: [] Patient: Hans Trinidad 57 y/o M admitted on 11/16/22 for hernia. Chief Complaint: [Groin pain] Principal diagnosis: Sepsis, cellulitis, BLAISE Interval history: The patient is looking and feeling much better. Today is the first time that he is alert and fully conversant. Were able to carry a full conversation. He was resting in her chair. His was present at the bedside. Discussed plan of care. Is able to answer all the question to his satisfaction. Constitutional Vitals: Vital Signs Temp Pulse Resp BP Pulse Ox O2 Del Method 98.9 F 76 24 H 155/77 93 Room Air 11/18/22 07:32 11/18/22 07:32 11/18/22 07:32 11/18/22 07:32 11/18/22 08:00 11/18/22 08:00 Period Temp Pulse Resp BP Sys/Moeller Pulse Ox O2 Del Method O2 Flow Rate Last 24 Hr 97.6 F-103.2 F 65-89 24-25 155-171/67-85 91-96 Room Air-Room Air Intake and Output 11/18/22 11/18/22 11/18/22 03:59 11:59 19:59 Intake Total 1200 550 Output Total 1525 910 Balance -325 -360 Weight 134.173 kg Intake & Output: Intake & Output 11/18/22 11/18/22 11/18/22 03:59 11:59 19:59 Intake Total 1200 550 Output Total 1525 910 Balance -325 -360 Weight 134.173 kg Intake: IV 550 Zosyn 3.375 gm In Dextrose 5% 50 in Water 50 ml @ 100 mls/hr IV Q6H [facility] Rx#:[id number] Vancomycin 1,500 mg In Sodium 500 Chloride 0.9% 500 ml @ 333.3 mls/hr IV Q12H [facility] Rx#: [id number] Oral 650 550 Output: Void Amount 1525 910 Other: Urine Appearance Clear Clear Urine Color Dark Yellow Dark Yellow Urine Odor Normal Strong Stool Size Moderate Stool Color Brown Stool Consistency Formed Head Head exam: Present atraumatic and normal inspection Eye Eye exam: Present normal appearance ENT ENT exam: Present mucous membranes moist, normal exam and normal external ear exam Neck Neck exam: Present normal inspection Respiratory Respiratory exam: Present normal respiratory exam Cardiovascular Cardiovascular exam: Present normal rate and rhythm GI/Abdominal GI/Abdominal exam: Present normal bowel sounds Back Exam Back exam: Present normal inspection Neurological Exam Neurological exam: Present alert and oriented X3 Skin Skin exam: Present intact and warm OBJ DATA Labs 11/18/22 05:15 11/18/22 05:15 Labs: Abnormal Lab Results 11/18/22 11/18/22 11/17/22 05:15 05:15 05:21 WBC RBC 4.45 L Hgb 13.3 L Hct 38.4 L Immature Gran % (Auto) 0.6 H Neut % (Auto) 88.6 H Lymph % (Auto) 5.9 L Lymph # (Auto) 0.53 L Immature Gran # Absolute Neutrophils POC VBG pH POC VBG pCO2 at Temp POC VBG pO2 POC Venous O2 Sat POC VBG Base Excess VBG Lactic Acid Sodium 131 L POC Potassium Potassium 2.6 L* 2.8 L* POC Chloride Chloride 92 L POC Total CO2 Glucose 196 H 197 H POC Glucose POC WB Ioniz Calcium C-Reactive Protein Procalcitonin 11/17/22 11/16/22 11/16/22 05:21 16:04 16:04 WBC 15.5 H RBC 4.49 L Hgb Hct 38.9 L Immature Gran % (Auto) Neut % (Auto) 95.0 H Lymph % (Auto) 1.5 L Lymph # (Auto) 0.23 L Immature Gran # 0.08 H Absolute Neutrophils 14.69 H POC VBG pH POC VBG pCO2 at Temp POC VBG pO2 POC Venous O2 Sat POC VBG Base Excess VBG Lactic Acid Sodium POC Potassium Potassium POC Chloride Chloride POC Total CO2 Glucose POC Glucose POC WB Ioniz Calcium C-Reactive Protein 2.30 H Procalcitonin 0.43 H 11/16/22 11/16/22 11/16/22 15:54 14:29 13:37 WBC 16.8 H RBC Hgb Hct 40.0 L Immature Gran % (Auto) Neut % (Auto) 91.3 H Lymph % (Auto) 3.4 L Lymph # (Auto) 0.57 L Immature Gran # 0.09 H Absolute Neutrophils 15.31 H POC VBG pH 7.48 H POC VBG pCO2 at Temp 36.2 L POC VBG pO2 49 H POC Venous O2 Sat 87.0 H POC VBG Base Excess 3.0 H VBG Lactic Acid 2.5 H Sodium POC Potassium 2.9 L* Potassium POC Chloride 94 L Chloride POC Total CO2 31.0 H Glucose POC Glucose 284 H POC WB Ioniz Calcium 1.11 L C-Reactive Protein Procalcitonin Meds: Medications Acetaminophen (Acetaminophen 325 Mg Tablet) 650 mg PO Q6HP PRN; Protocol PRN Reason: Per Pain Protocol/Fever > 101 Last Admin: 11/17/22 10:02 Dose: 650 mg Amlodipine Besylate (Amlodipine 10 Mg Tablet) 10 mg PO HS [facility] Last Admin: 11/17/22 21:24 Dose: 10 mg Aspirin (Aspirin 81 Mg Tab.Chew) 81 mg PO DAILY [facility] Last Admin: 11/18/22 09:50 Dose: 81 mg Ceftriaxone Sodium (Ceftriaxone 1 Gm Vial) 1 gm IV Q24H [facility]; Protocol Dextrose (Dextrose 50% 50 Ml Vial) 0 ml IV UD PRN PRN Reason: Per Sliding Scale Diagnostic Test (Pha) (Accu-Chek 1 Each Strip) 1 each FS ACHS [facility] Last Admin: 11/18/22 10:58 Dose: 1 each Docusate Sodium (Docusate Sodium 100 Mg Capsule) 100 mg PO BID [facility] Last Admin: 11/18/22 09:49 Dose: 100 mg Enoxaparin Sodium (Enoxaparin 40 Mg/0.4 Ml Syringe) 40 mg SQ DAILY [facility] Last Admin: 11/18/22 09:54 Dose: 40 mg Furosemide (Furosemide 40 Mg/4 Ml Vial) 40 mg IV Q12 [facility] Last Admin: 11/18/22 09:49 Dose: 40 mg Glucose (Dextrose 31 Gm Oral.Susp) 15 gm PO PRN PRN PRN Reason: Hypoglycemia Hydralazine HCl (Hydralazine 10 Mg Tablet) 10 mg PO TID [facility] Last Admin: 11/18/22 09:49 Dose: 10 mg Vancomycin HCl 2,000 mg/ (Sodium Chloride) 500 mls @ 250 mls/hr IV Q12H [facility] Last Admin: 11/18/22 10:52 Dose: 250 mls/hr Ibuprofen (Ibuprofen 600 Mg Tablet) 600 mg PO QIDP PRN; Protocol PRN Reason: Per Pain Protocol/Fever > 101 Last Admin: 11/17/22 15:29 Dose: 600 mg Insulin Glargine (Insulin Glargine, Human 1 Unit/0.01 Ml) 15 unit SQ DAILY [facility] Last Admin: 11/18/22 09:49 Dose: 15 units Insulin Human Lispro (Insulin Lispro 1 Unit/0.01 Ml Unit) 0 unit SQ ACHS [facility]; Protocol Last Admin: 11/18/22 11:01 Dose: 8 units Labetalol HCl (Labetalol 100 Mg Tablet) 300 mg PO BID [facility] Last Admin: 11/18/22 09:50 Dose: 300 mg Ondansetron HCl (Ondansetron 4 Mg/2 Ml Vial) 4 mg IV Q6HP PRN PRN Reason: Nausea And Vomiting Potassium Chloride (Potassium Chloride 20 Meq Tablet) 40 meq PO BIDCC [facility] Last Admin: 11/18/22 09:50 Dose: 40 meq Senna (Sennosides 1 Tablet) 2 tab PO HS [facility] Last Admin: 11/17/22 21:24 Dose: 2 tab Sodium Chloride (0.9 % Sodium Chloride 10 Ml Syringe) 10 ml IV Q8 [facility] Last Admin: 11/18/22 05:16 Dose: 10 ml Vancomycin HCl (Vancomycin Per Pharmacy) 1 order IV DAILY [facility]; Protocol Last Admin: 11/18/22 10:52 Dose: 1 order A/P Assessment and plan (1) Hypokalemia: Status: Chronic (2) Sepsis: Status: Acute (3) Lactic acidosis: Status: Acute (4) Obesity: Status: Chronic Qualifiers: Obesity type: due to excess calories Obesity classification: adult class 2 (BMI 35 - 39.9) Serious obesity comorbidity presence: without serious comorbidity Body mass index: BMI 37.0-37.9 Qualified Code(s): E66.09 - Other obesity due to excess calories; Z68.37 - Body mass index [BMI] 37.0-37.9, adult (5) Cellulitis: Status: Acute Narrative A/P Narrative: The etiology of the patient's sepsis was initially unclear however upon examination, he does have significant breakdown of the left calf area. At baseline, he has degenerative skin changes likely in the setting of severe underlying PVD. There may be also a possibility of venous stasis dermatitis. Wound culture will be obtained. Blood cultures are pending. Wound care referral has been placed. We will start ceftriaxone and vancomycin. We will co ntinue IV fluids and follow-up on his lactic acid. The patient was found to have hypokalemia as this was likely in the setting of chlorthalidone. The patient's home metformin will be held and we will continue insulin sliding scale. 11/17: The patient was still spiking fever but his white blood cell count has improved to 15.5. His lactic acid has normalized to 1.5. The patient's MRSA screen was negative and we will transition vancomycin to Zosyn. He does have severe venous stasis dermatitis which has developed into purulent cellulitis. Continue local wound care. 11/18: The patient's fevers have significantly improved. He did receive a dose of IV Toradol yesterday evening. His sepsis has now resolved as well. His white blood cell count is normalized to 9.0. In terms of his tachypnea and worsening edema, he was given a dose of Lasix 80 mg IV x1 yesterday and will continue Lasix 40 mg IV twice daily. In terms of afterload reduction, I have also added hydralazine 10 mg p.o. daily. TTE has been obtained. He may benefit from cardiology outpatient follow-up. In terms of his diabetes, his blood sugars have been in the 200s and have added Lantus 15 units. The patient's wound culture has returned and reveals group B strep and Klebsiella oxytoca that is pansensitive. I have de-escalated his antibiotics from Zosyn to ceftriaxone. We will continue vancomycin. Time Spent With Patient Time: Total time spent is greater than 50% in coordination of care (as documented) at patient's floor/unit and/or counseling patient: Subsequent: Total time with patient: 25 - 34 minutes QUALITY Stroke Symptom Onset Unknown: No VTE Deep Vein Thrombosis/Pulmonary Embolism Present on Admission: No
[2022-11-18] MEDS: cefTRIAXone 1 GM VIAL IV SCH (13:57)
[2022-11-18] MEDS ORDERED: POTASSIUM CHLORIDE 20 MEQ TABLET PO SCH (17:30)
[2022-11-18] MEDS: amLODIPine 10 MG TABLET PO SCH (21:23)
[2022-11-18] MEDS: SENNOSIDES 1 TABLET PO SCH (21:23)
[2022-11-18] MEDS: ACETAMINOPHEN 325 MG TABLET PO PRN (23:50)
[2022-11-19] MEDS: 0.9 % SODIUM CHLORIDE 10 ML SYRINGE IV SCH ×2 (05:28→14:13)
[2022-11-19 06:21] LABS: Basophils # (Auto) 0.03 K/mcL (0.00-0.30); Basophils % (Auto) 0.5 % (0.0-2.0); Eosinophils # (Auto) 0.15 K/mcL (0.00-0.70); Eosinophils % (Auto) 2.3 % (0.0-7.0); Hematocrit 36.2 % (40.1-51.0); Hemoglobin 12.4 g/dL (13.7-17.5); Lymphocytes # (Auto) 0.84 K/mcL (1.50-4.80); Lymphocytes % (Auto) 12.7 % (15.5-49.0); Mean Cell Volume 86.4 fL (80.0-100.0); Mean Corpuscular HGB Conc 34.3 g/dL (31.0-36.0); Mean Platelet Volume 10.1 fL (8.8-12.5); Monocytes # (Auto) 0.76 K/mcL (0.10-0.90); Monocytes % (Auto) 11.4 % (1.0-12.0); Neutrophils % (Auto) 72.6 % (38.0-78.0); Platelet Count 144 K/mcL (140-440); RBC 4.19 M/mcL (4.63-6.08); Red Cell Distribution Width 13.1 % (11.5-14.5); WBC 6.6 K/mcL (4.5-11.0)
[2022-11-19 06:49] LABS: Blood Urea Nitrogen 13 mg/dL (6-20); Calcium 8.7 mg/dL (8.6-10.4); Carbon Dioxide 28 mmol/L (22-30); Chloride 97 mmol/L (96-108); Glomerular Filtration Rate 94; Glucose 159 mg/dL (70-105)
[2022-11-19] MEDS: POTASSIUM CHLORIDE 20 MEQ TABLET PO SCH (07:32)
[2022-11-19] MEDS: cefTRIAXone 1 GM VIAL IV SCH (07:33)
[2022-11-19] MEDS: INSULIN LISPRO 1 UNIT/0.01 ML UNIT SQ SCH ×2 (07:52→11:35)
[2022-11-19] MEDS: hydrALAZINE 10 MG TABLET PO SCH ×2 (08:25→15:12)
[2022-11-19] MEDS: ASPIRIN 81 MG TAB.CHEW PO SCH (08:25)
[2022-11-19] MEDS: FUROSEMIDE 40 MG/4 ML VIAL IV SCH (08:26)
[2022-11-19] MEDS: ENOXAPARIN 40 MG/0.4 ML SYRINGE SQ SCH (08:26)
[2022-11-19] MEDS: INSULIN GLARGINE, HUMAN 1 UNIT/0.01 ML SQ SCH (08:26)
[2022-11-19] MEDS: DOCUSATE SODIUM 100 MG CAPSULE PO SCH (08:26)
[2022-11-19] MEDS: LABETALOL 100 MG TABLET PO SCH (08:26)
[2022-11-19] MEDS: VANCOMYCIN 2,000 MG in 0.9 % SODIUM CHLORIDE 500 ML IV SCH (11:07)
[2022-11-19] MEDS: VANCOMYCIN PER PHARMACY IV SCH (11:07)
--- NOTE | 2022-11-19 11:51 | Internal Med Progress Note ---
SUBJECTIVE Subjective Patient information: Note initiated : 11/19/22 at 11:49 am Service Date, if different from initiated Date: [] Patient: Hans Trinidad 57 y/o M admitted on 11/16/22 for hernia. Chief Complaint: [AMS] Principal diagnosis: Sepsis, cellulitis, BLAISE Interval history: The patient is again looking and feeling much better. Went through the culture results with the patient. Discussed antibiotic options. Also discussed wound care options. They are interested in home health. They were concerned about he r [employer]. was present at the bedside. Constitutional Vitals: Vital Signs Temp Pulse Resp BP Pulse Ox O2 Del Method 98.5 F 58 L 20 148/72 95 Room Air 11/19/22 07:10 11/19/22 03:53 11/19/22 07:10 11/19/22 07:10 11/19/22 07:10 11/19/22 07:10 Period Temp Pulse Resp BP Sys/Moeller Pulse Ox O2 Del Method O2 Flow Rate Last 24 Hr 97.9 F-99.1 F 58-74 16-24 136-165/67-79 95-98 Room Air-Room Air Intake and Output 11/18/22 11/19/22 11/19/22 19:59 03:59 11:59 Intake Total 1790 1300 240 Output Total 825 1375 500 Balance 965 -75 -260 Weight 129.637 kg Intake & Output: Intake & Output 11/18/22 11/19/22 11/19/22 19:59 03:59 11:59 Intake Total 1790 1300 240 Output Total 825 1375 500 Balance 965 -75 -260 Weight 129.637 kg Intake: IV 500 500 Vancomycin 2,000 mg In Sodium 500 500 Chloride 0.9% 500 ml @ 250 mls/ hr IV Q12H [facility] Rx#:[id number] Oral 1290 800 240 Output: Void Amount 825 1375 500 Other: Meal Lunch Percent of Meal Consumed 100% Urine Appearance Clear Clear Clear Urine Color Yellow Yellow Dark Yellow Urine Odor Normal Normal Stool Size Large Stool Color Brown Stool Consistency Normal for Patient Formed Head Head exam: Present atraumatic and normal inspection Eye Eye exam: Present normal appearance ENT ENT exam: Present mucous membranes moist, normal exam and normal external ear exam Neck Neck exam: Present normal inspection Respiratory Respiratory exam: Present normal respiratory exam Cardiovascular Cardiovascular exam: Present normal rate and rhythm GI/Abdominal GI/Abdominal exam: Present normal bowel sounds Back Exam Back exam: Present normal inspection Neurological Exam Neurological exam: Present alert and oriented X3 Skin Skin exam: Present intact and warm OBJ DATA Labs 11/19/22 05:32 11/19/22 05:32 Labs: Abnormal Lab Results 11/19/22 11/19/22 11/18/22 05:32 05:32 05:15 WBC RBC 4.19 L Hgb 12.4 L Hct 36.2 L Immature Gran % (Auto) Neut % (Auto) Lymph % (Auto) 12.7 L Lymph # (Auto) 0.84 L Immature Gran # Absolute Neutrophils POC VBG pH POC VBG pCO2 at Temp POC VBG pO2 POC Venous O2 Sat POC VBG Base Excess VBG Lactic Acid Sodium 131 L POC Potassium Potassium 2.8 L* 2.6 L* POC Chloride Chloride 92 L POC Total CO2 Glucose 159 H 196 H POC Glucose POC WB Ioniz Calcium C-Reactive Protein Procalcitonin 11/18/22 11/17/22 11/17/22 05:15 05:21 05:21 WBC 15.5 H RBC 4.45 L 4.49 L Hgb 13.3 L Hct 38.4 L 38.9 L Immature Gran % (Auto) 0.6 H Neut % (Auto) 88.6 H 95.0 H Lymph % (Auto) 5.9 L 1.5 L Lymph # (Auto) 0.53 L 0.23 L Immature Gran # 0.08 H Absolute Neutrophils 14.69 H POC VBG pH POC VBG pCO2 at Temp POC VBG pO2 POC Venous O2 Sat POC VBG Base Excess VBG Lactic Acid Sodium POC Potassium Potassium 2.8 L* POC Chloride Chloride POC Total CO2 Glucose 197 H POC Glucose POC WB Ioniz Calcium C-Reactive Protein Procalcitonin 11/16/22 11/16/22 11/16/22 16:04 16:04 15:54 WBC RBC Hgb Hct Immature Gran % (Auto) Neut % (Auto) Lymph % (Auto) Lymph # (Auto) Immature Gran # Absolute Neutrophils POC VBG pH 7.48 H POC VBG pCO2 at Temp 36.2 L POC VBG pO2 49 H POC Venous O2 Sat 87.0 H POC VBG Base Excess 3.0 H VBG Lactic Acid 2.5 H Sodium POC Potassium Potassium POC Chloride Chloride POC Total CO2 Glucose POC Glucose POC WB Ioniz Calcium C-Reactive Protein 2.30 H Procalcitonin 0.43 H 11/16/22 11/16/22 14:29 13:37 WBC 16.8 H RBC Hgb Hct 40.0 L Immature Gran % (Auto) Neut % (Auto) 91.3 H Lymph % (Auto) 3.4 L Lymph # (Auto) 0.57 L Immature Gran # 0.09 H Absolute Neutrophils 15.31 H POC VBG pH POC VBG pCO2 at Temp POC VBG pO2 POC Venous O2 Sat POC VBG Base Excess VBG Lactic Acid Sodium POC Potassium 2.9 L* Potassium POC Chloride 94 L Chloride POC Total CO2 31.0 H Glucose POC Glucose 284 H POC WB Ioniz Calcium 1.11 L C-Reactive Protein Procalcitonin Meds: Medications Acetaminophen (Acetaminophen 325 Mg Tablet) 650 mg PO Q6HP PRN; Protocol PRN Reason: Per Pain Protocol/Fever > 101 Last Admin: 11/18/22 23:50 Dose: 650 mg Amlodipine Besylate (Amlodipine 10 Mg Tablet) 10 mg PO HS [facility] Last Admin: 11/18/22 21:23 Dose: 10 mg Aspirin (Aspirin 81 Mg Tab.Chew) 81 mg PO DAILY [facility] Last Admin: 11/19/22 08:25 Dose: 81 mg Ceftriaxone Sodium (Ceftriaxone 1 Gm Vial) 1 gm IV Q24H [facility]; Protocol Last Admin: 11/19/22 07:33 Dose: 1 gm Dextrose (Dextrose 50% 50 Ml Vial) 0 ml IV UD PRN PRN Reason: Per Sliding Scale Diagnostic Test (Pha) (Accu-Chek 1 Each Strip) 1 each FS ACHS [facility] Last Admin: 11/19/22 11:16 Dose: 1 each Docusate Sodium (Docusate Sodium 100 Mg Capsule) 100 mg PO BID [facility] Last Admin: 11/19/22 08:26 Dose: 100 mg Enoxaparin Sodium (Enoxaparin 40 Mg/0.4 Ml Syringe) 40 mg SQ DAILY [facility] Last Admin: 11/19/22 08:26 Dose: 40 mg Furosemide (Furosemide 40 Mg/4 Ml Vial) 40 mg IV Q12 [facility] Last Admin: 11/19/22 08:26 Dose: 40 mg Glucose (Dextrose 31 Gm Oral.Susp) 15 gm PO PRN PRN PRN Reason: Hypoglycemia Hydralazine HCl (Hydralazine 10 Mg Tablet) 10 mg PO TID [facility] Last Admin: 11/19/22 08:25 Dose: 10 mg Ibuprofen (Ibuprofen 600 Mg Tablet) 600 mg PO QIDP PRN; Protocol PRN Reason: Per Pain Protocol/Fever > 101 Last Admin: 11/17/22 15:29 Dose: 600 mg Insulin Glargine (Insulin Glargine, Human 1 Unit/0.01 Ml) 15 unit SQ DAILY [facility] Last Admin: 11/19/22 08:26 Dose: 15 units Insulin Human Lispro (Insulin Lispro 1 Unit/0.01 Ml Unit) 0 unit SQ ACHS [facility]; Protocol Last Admin: 11/19/22 11:35 Dose: 6 units Labetalol HCl (Labetalol 100 Mg Tablet) 300 mg PO BID [facility] Last Admin: 11/19/22 08:26 Dose: 300 mg Ondansetron HCl (Ondansetron 4 Mg/2 Ml Vial) 4 mg IV Q6HP PRN PRN Reason: Nausea And Vomiting Potassium Chloride (Potassium Chloride 20 Meq Tablet) 40 meq PO BIDCC [facility] Last Admin: 11/19/22 07:32 Dose: 40 meq Senna (Sennosides 1 Tablet) 2 tab PO HS [facility] Last Admin: 11/18/22 21:23 Dose: 2 tab Sodium Chloride (0.9 % Sodium Chloride 10 Ml Syringe) 10 ml IV Q8 [facility] Last Admin: 11/19/22 05:28 Dose: 10 ml A/P Assessment and plan (1) Hypokalemia: Status: Chronic (2) Sepsis: Status: Acute (3) Lactic acidosis: Status: Acute (4) Obesity: Status: Chronic Qualifiers: Obesity type: due to excess calories Obesity classification: adult class 2 (BMI 35 - 39.9) Serious obesity comorbidity presence: without serious comorbidity Body mass index: BMI 37.0-37.9 Qualified Code(s): E66.09 - Other obesity due to excess calories; Z68.37 - Body mass index [BMI] 37.0-37.9, adult (5) Cellulitis: Status: Acute Narrative A/P Narrative: The etiology of the patient's sepsis was initially unclear however upon examination, he does have significant breakdown of the left calf area. At baseline, he has degenerative skin changes likely in the setting of severe underlying PVD. There may be also a possibility of venous stasis dermatitis. Wound culture will be obtained. Blood cultures are pending. Wound care referral has been placed. We will start ceftriaxone and vancomycin. We will continue IV fluids and follow-up on his lactic acid. The patient was found to have hypokalemia as this was likely in the setting of chlorthalidone. The patient's home metformin will be held and we will continue insulin sliding scale. 11/17: The patient was still spiking fever but his white blood cell count has improved to 15.5. His lactic acid has normalized to 1.5. The patient's MRSA screen was negative and we will transition vancomycin to Zosyn. He does have severe venous stasis dermatitis which has developed into purulent cellulitis. Continue local wound care. 11/18: The patient's fevers have significantly improved. He did receive a dose of IV Toradol yesterday evening. His sepsis has now resolved as well. His white blood cell count is normalized to 9.0. In terms of his tachypnea and worsening edema, he was given a dose of Lasix 80 mg IV x1 yesterday and will continue Lasix 40 mg IV twice daily. In terms of afterload reduction, I have also added hydralazine 10 mg p.o. daily. TTE has been obtained. He may benefit from cardiology outpatient follow-up. In terms of his diabetes, his blood sugars have been in the 200s and have added Lantus 15 units. The patient's wound culture has returned and reveals group B strep and Klebsiella oxytoca that is pansensitive. I have de-escalated his antibiotics from Zosyn to ceftriaxone. We will continue vancomycin. 11/19: The patient will have his Lasix discontinued today. TTE is pending. In terms of his left calf purulent cellulitis, he will need ongoing wound care. Will be switched to p.o. antibiotics tomorrow upon discharge will complete a 2- week course. They are requesting home health for wound care. Time Spent With Patient Time: Total time spent is greater than 50% in coordination of care (as documented) at patient's floor/unit and/or counseling patient: Subsequent: Total time with patient: 25 - 34 minutes QUALITY Stroke Symptom Onset Unknown: No VTE Deep Vein Thrombosis/Pulmonary Embolism Present on Admission: No
--- NOTE | 2022-11-19 13:36 | Discharge Summary ---
Discharge Provider Provider IMPORTANT FOLLOW-UP INFORMATION FOR PCP: 1. F/u for wound care 2. TTE results reassuring 3. Complete 10 more days of antibiotics Patient information: Note initiated : 11/19/22 at 1:36 pm Service Date, if different from initiated Date: [] Patient: Hans Trinidad 57 y/o M admitted on 11/16/22 for hernia. Chief Complaint: [] Date of admission: 11/16/22 19:17 Discharge date: 11/19/22 Primary care physician: Chris Stinson MD Consults: 11/16/22 Consult to Physician [CONS] Stat Comment: Consulting Provider: Prem Bray Reason For Exam: Physician to Consult Attending physician on discharge: Prem Bray COURSE Hospital Course Hospital course: A/P Narrative: The etiology of the patient's sepsis was initially unclear however upon examination, he does have significant breakdown of the left calf area. At baseline, he has degenerative skin changes likely in the setting of severe underlying PVD. There may be also a possibility of venous stasis dermatitis. Wound culture will be obtained. Blood cultures are pending. Wound care referral has been placed. We will start ceftriaxone and vancomycin. We will continue IV fluids and follow-up on his lactic acid. The patient was found to have hypokalemia as this was likely in the setting of chlorthalidone. The patient's home metformin will be held and we will continue insulin sliding scale. 11/17: The patient was still spiking fever but his white blood cell count has improved to 15.5. His lactic acid has normalized to 1.5. The patient's MRSA screen was negative and we will transition vancomycin to Zosyn. He does have severe venous stasis dermatitis which has developed into purulent cellulitis. Continue local wound care. 11/18: The patient's fevers have significantly improved. He did receive a dose of IV Toradol yesterday evening. His sepsis has now resolved as well. His white blood cell count is normalized to 9.0. In terms of his tachypnea and worsening edema, he was given a dose of Lasix 80 mg IV x1 yesterday and will continue Lasix 40 mg IV twice daily. In terms of afterload reduction, I have also added hydralazine 10 mg p.o. daily. TTE has been obtained. He may benefit from cardiology outpatient follow-up. In terms of his diabetes, his blood sugars have been in the 200s and have added Lantus 15 units. The patient's wound culture has returned and reveals group B strep and Klebsiella oxytoca that is pansensitive. I have de-escalated his antibiotics from Zosyn to ceftriaxone. We will continue vancomycin. 11/19: The patient will have his Lasix discontinued today. TTE is pending. In terms of his left calf purulent cellulitis, he will need ongoing wound care. Will be switched to p.o. antibiotics tomorrow upon discharge will complete a 2- week course. They are requesting home health for wound care. ADDENDUM: Patient wishes to d/c home today. Will switch to Cipro and Augmentin for 10 additional days. Wound care instructions provided, and f/u scheduled w/ Dr. Cardenas. Discharge diagnosis: Sepsis, LLE cellulitis Time Spent with Patient Time attestation: Total time spent providing and/or coordinating discharge services: Time spent: Greater than 30 minutes EXAM Constitutional Vitals: Temp Pulse Resp BP Pulse Ox O2 Del Method 98 F 58 L 16 140/68 96 Room Air 11/19/22 11:53 11/19/22 03:53 11/19/22 11:53 11/19/22 11:53 11/19/22 11:53 11/19/22 11:53 General appearance: average body habitus Head Head exam: Present atraumatic, normal inspection and normocephalic Eye Eye exam: Present EOMI, normal appearance and PERRL; Absent conjunctival injection ENT ENT exam: Present normal exam; Absent mucous membranes dry Neck Neck exam: Present full ROM; Absent lymphadenopathy Respiratory Respiratory exam: Present normal respiratory exam and CTAB; Absent decreased breath sounds, respiratory distress or wheezes Cardiovascular Cardiovascular exam: Present normal rate and rhythm and RRR; Absent JVD GI/Abdominal GI/Abdominal exam: Present normal bowel sounds and soft; Absent diminished bowel sounds, distended, guarding, mass, rebound or tenderness Neurological Exam Neurological exam: Present alert, CN II-XII intact and oriented X3 Psychiatric Psychiatric exam: Present normal affect and normal mood Skin Skin exam: Present intact and warm; Absent erythema, pallor, petechiae or rash Discharge Data Data Completed and Pending Labs on day of discharge: Labs from last 24 hours 01/11/19/22 11/19/22 07:59 05:32 05:32 WBC 6.6 RBC 4.19 L Hgb 12.4 L Hct 36.2 L MCV 86.4 MCH 29.6 MCHC 34.3 RDW 13.1 Plt Count 144 MPV 10.1 Immature Gran % (Auto) 0.5 Neut % (Auto) 72.6 Lymph % (Auto) 12.7 L [place] % (Auto) 11.4 Eos % (Auto) 2.3 Baso % (Auto) 0.5 Lymph # (Auto) 0.84 L [place] # (Auto) 0.76 Eos # (Auto) 0.15 Baso # (Auto) 0.03 Immature Gran # 0.03 Absolute Neutrophils 4.83 Sodium 136 Potassium 2.8 L* Chloride 97 Carbon Dioxide 28 Anion Gap 11.0 BUN 13 Creatinine 0.9 GFR Calculation 94 Glucose 159 H Calcium 8.7 Vancomycin Trough 13.2 Preliminary micro results at discharge 11/16/22 15:57 Blood Culture - Preliminary Blood 11/16/22 15:57 Blood Culture - Preliminary Blood Discharge Plan Patient/Caregiver Discharge Instructions Activity: increase activity as tolerated Instructions: Cellulitis (DC) Activity Restrictions/Additional Instructions: Wound Care to left lower le. Cleanse leg with Chlorhexidine. 2. Apply antifungal ointment to the lower leg except for to open area. 3. Cover open area with Adaptic 4. Cover with ABD pad 5. Secure with kerlix (roll gauze). 6. Change daily. Prescriptions: New amoxicillin-pot clavulanate 875-125 mg tablet 1 tab PO Q12H 10 Days Qty: 20 0RF ciprofloxacin HCl 500 mg tablet 500 mg PO BID Qty: 20 0RF Continued omega-3 fatty acids [Fish Oil Concentrate] 1,000 mg capsule 1,000 mg PO HS potassium chloride [K-Tab] 8 mEq tablet extended release 16 meq PO QDAY psyllium husk [Daily Fiber] 0.4 gram capsule 0.4 g PO BID Rx Instructions: one level tablespoon metformin 1,000 mg tablet 1,000 mg PO BID Qty: 60 3RF amlodipine 10 mg tablet 10 mg PO QDAY Qty: 90 2RF chlorthalidone 25 mg tablet 25 mg PO QDAY Qty: 30 2RF labetalol 300 mg tablet 300 mg PO BID aspirin 81 mg tablet,delayed release (DR/EC) 81 mg PO QDAY Cholecalciferol (Vitamin D3) 125 mcg PO HS Niacin 100 mg PO HS potassium chloride [Klor-Con 8] 8 mEq tablet extended release 8 meq PO HS Follow Up Plan Follow up with: Tal Cardenas MD [Physician] - (Follow up in [facility] for venous ulcer s/p cellulitis in 5-7 days.) Chris Stinson MD [Primary Care Provider] - Patient Disposition: Home, Self-Care I certify that the patient requires SNF services: No Overall status at discharge: patient is progressing back to baseline Discharge Orders: Discharge Order (Routine); Ordered 11/19/22 Ordered By: Prem ACEVES VTE Deep Vein Thrombosis/Pulmonary Embolism Present on Admission: No
== END 2022-11-19 15:50 | disposition home or self-care (01) | DRG 872 ==
LOC: ED 12:14 → MEDSUR 19:17
PROVIDERS: ADMIT Student in an Organized Health Care Education/Training Program; ATTEND Student in an Organized Health Care Education/Training Program

== ENCOUNTER 2024-09-24 07:30 | Inpatient (IN) ==
[2024-09-13 09:55] LABS: Basophils # (Auto) 0.02 K/mcL (0.00-0.30); Basophils % (Auto) 0.4 % (0.0-2.0); Eosinophils % (Auto) 3.8 % (0.0-7.0); Hematocrit 43.7 % (40.1-51.0); Hemoglobin 14.9 g/dL (13.7-17.5); Lymphocytes # (Auto) 1.01 K/mcL (1.50-4.80); Lymphocytes % (Auto) 19.2 % (15.5-49.0); Mean Cell Volume 87.6 fL (80.0-100.0); Mean Corpuscular HGB Conc 34.1 g/dL (31.0-36.0); Mean Platelet Volume 9.6 fL (8.8-12.5); Monocytes # (Auto) 0.43 K/mcL (0.10-0.90); Monocytes % (Auto) 8.2 % (1.0-12.0); Neutrophils % (Auto) 68.2 % (38.0-78.0); Platelet Count 194 K/mcL (140-440); RBC 4.99 M/mcL (4.63-6.08); Red Cell Distribution Width 13.7 % (11.5-14.5); WBC 5.3 K/mcL (4.5-11.0)
[2024-09-13 10:07] LABS: Blood Urea Nitrogen 13 mg/dL (6-20); Calcium 9.4 mg/dL (8.6-10.4); Carbon Dioxide 29 mmol/L (22-30); Chloride 99 mmol/L (96-108); Glomerular Filtration Rate 93; Glucose 146 mg/dL (70-105); Potassium 3.4 mmol/L (3.3-5.1); Sodium 139 mmol/L (133-145)
[2024-09-13 10:21] LABS: Prothrombin Time 14.1 sec (11.9-14.5)
[2024-09-13 11:35] LABS: Estimated Average Glucose(eAG) 131 mg/dL; Hemoglobin A1C 6.2 % Hgb (4.0-6.0)
[2024-09-13 11:35] LABS: Appearance,Urine CLEAR (Clear); Bilirubin,Urine Negative (Negative); Color,Urine YELLOW; Glucose,Urine (UA) >=500 mg/dL (Negative); Ketones,Urine Negative (Negative); Leukocyte Esterase,Urine Negative /uL (Negative); Nitrate,Urine Negative (Negative); Protein,Urine Negative (Negative); Urine Blood Negative (Negative); Urine RBC 0 /hpf (0-3); Urine Squamous Epithelial Cell 0 /hpf (0-4); Urine WBC 0 /hpf (0-4); Urobilinogen,Urine Negative
[2024-09-24] MEDS: PREGABALIN 75 MG CAPSULE PO SCH ×2 (12:04→12:10)
[2024-09-24] MEDS: oxyCODONE 10 MG TAB.ER.12H PO SCH ×2 (12:04→12:11)
[2024-09-24] MEDS: ACETAMINOPHEN 500 MG TABLET PO SCH ×2 (12:04→12:11)
[2024-09-24] MEDS: CELECOXIB 200 MG CAPSULE PO SCH ×2 (12:05→12:10)
[2024-09-24] MEDS ORDERED: LIDOCAINE 2% PF 5 ML VIAL ONE (12:41)
[2024-09-24] MEDS ORDERED: DEXAMETHASONE 10 MG/ML VIAL ONE (12:41)
[2024-09-24] MEDS ORDERED: ONDANSETRON 4 MG/2 ML VIAL ONE (12:41)
[2024-09-24] MEDS ORDERED: ROPIVACAINE HCL/PF 30 ML VIAL IJ ONE (12:41)
[2024-09-24] MEDS ORDERED: PROPOFOL 200 MG/20 ML VIAL IV ONE (12:41)
[2024-09-24] MEDS ORDERED: TRANEXAMIC ACID 1,000 MG/10 ML VIAL ONE ×2 (12:41→16:32)
[2024-09-24] MEDS ORDERED: PHENYLephrine 1 MG/10 ML SYRINGE (ANEST) ONE (12:41)
[2024-09-24] MEDS ORDERED: MIDAZOLAM 2 MG/2 ML VIAL ONE (12:46)
[2024-09-24] MEDS: ceFAZolin 2 GM in DEXTROSE 5% IN WATER 50 ML IV SCH (12:47)
[2024-09-24] MEDS ORDERED: ePHEDrine 50 MG/5 ML SYRINGE (ANEST) IV ONE (13:54)
[2024-09-24] MEDS ORDERED: GLYCOPYRROLATE 0.2 MG/ML VIAL IV ONE (14:28)
[2024-09-24] MEDS: 0.9 % SODIUM CHLORIDE 9 ML, KETOROLAC 30 MG, ROPIVACAINE HCL/PF 49.5 ML, EPINEPHrine 0.... IJ SCH (14:39)
[2024-09-24] MEDS ORDERED: BENZOCAINE/MENTHOL 1 LOZENGE PO PRN (14:58)
[2024-09-24] MEDS ORDERED: MEPERIDINE 25 MG/ML VIAL IV PRN (14:58)
[2024-09-24] MEDS ORDERED: ONDANSETRON 4 MG/2 ML VIAL IV PRN (14:58)
[2024-09-24] MEDS ORDERED: IPRATROPIUM/ALBUTEROL 3 ML AMPUL.NEB NEB PRN (14:58)
[2024-09-24] MEDS ORDERED: fentaNYL 100 MCG/2 ML VIAL IV PRN (14:58)
[2024-09-24] MEDS ORDERED: MAGNESIUM HYDROXIDE 30 ML ORAL.SUSP PO PRN (15:53)
[2024-09-24] MEDS ORDERED: FLEETS ADULT 1 DOSE ENEMA PR PRN (15:53)
[2024-09-24] MEDS ORDERED: POLYETHYLENE GLYCOL 3350 17 GM PACKET PO PRN (15:53)
[2024-09-24] MEDS ORDERED: BISACODYL 10 MG SUPP.RECT PR PRN (15:53)
[2024-09-24] MEDS ORDERED: ACETAMINOPHEN 325 MG TABLET PO PRN (15:53)
[2024-09-24] MEDS: TRANEXAMIC ACID 1,000 MG/10 ML VIAL IV SCH (16:36)
[2024-09-24] MEDS: 0.45 % SODIUM CHLORIDE 1,000 ML IV SCH (17:31)
[2024-09-24] MEDS: KETOROLAC 15 MG/ML VIAL IV SCH (17:37)
[2024-09-24] MEDS: ceFAZolin 1 GM VIAL IV SCH (17:42)
[2024-09-24] MEDS: ASPIRIN 81 MG TAB.CHEW PO SCH (20:19)
[2024-09-24] MEDS: SENNOSIDES 1 TABLET PO SCH (20:20)
[2024-09-24] MEDS: MAGNESIUM OXIDE 400 MG TABLET PO SCH (20:20)
[2024-09-24] MEDS: FISH OIL 1,000 MG CAPSULE PO SCH (20:20)
[2024-09-24] MEDS: POTASSIUM CHLORIDE 10 MEQ TABLET PO SCH (20:20)
[2024-09-24] MEDS: amLODIPine 10 MG TABLET PO SCH (20:20)
[2024-09-24] MEDS: LABETALOL 100 MG TABLET PO SCH (20:21)
[2024-09-24] MEDS: ceFAZolin 1 GM VIAL ONE (20:34)
[2024-09-24] MEDS: ceFAZolin 3 GM in DEXTROSE 5% IN WATER 50 ML IV SCH (20:34)
[2024-09-24] MEDS: 0.9 % SODIUM CHLORIDE 10 ML SYRINGE IV SCH (20:35)
[2024-09-24] MEDS: HYDROmorphone 1 MG/ML SYRINGE IV PRN (20:40)
[2024-09-24] MEDS ORDERED: RED YEAST RICE 600 MG PO SCH (21:00)
[2024-09-24] MEDS ORDERED: ceFAZolin 1 GM VIAL IV SCH (21:00)
[2024-09-24] MEDS ORDERED: [UNRECOGNIZED DRUG - OTHER] PO SCH (21:00)
[2024-09-24] MEDS ORDERED: [UNRECOGNIZED DRUG - OTHER] PO SCH (21:00)
[2024-09-25] MEDS: HYDROcodone/APAP 10/325MG TABLET PO PRN (04:02)
[2024-09-25] MEDS: POTASSIUM CHLORIDE 20 MEQ TABLET PO SCH (08:10)
[2024-09-25] MEDS: FUROSEMIDE 40 MG TABLET PO SCH (08:10)
[2024-09-25] MEDS: VITAMIN D3 125 MCG TABLET PO SCH (08:17)
[2024-09-25] MEDS ORDERED: COENZYME Q10 100 MG PO SCH (09:00)
== END 2024-09-25 10:55 | disposition home or self-care (01) | DRG 468 ==
LOC: EDACCT# → MEDSUR 10:36 → EDSTATUS 13:30
PROVIDERS: ADMIT Orthopaedic Surgery; ATTEND Orthopaedic Surgery